=== PATIENT | male | born 1950 | race Caucasian/White ===

== ENCOUNTER → 2020-12-21 10:03 | Outpatient (BNVA) | payer MEDICARE, BC, SELFPAY | PROVIDERS: PCP Internal Medicine; Visit Provider Surgery | DX: Z87.19 Personal history of other diseases of the digestive system (principal) | CPT/HCPCS: 99212 ==

== ENCOUNTER 2021-02-16 10:33 | Emergency (ER) | payer MEDICARE, BC, SELFPAY ==
--- NOTE | ~2021-02-16 | CT_ITS ---
EXAMINATION: CT ABDOMEN AND PELVIS WITH CONTRAST CLINICAL INFORMATION: Left lower quadrant abdominal pain. COMPARISON: None TECHNIQUE: Multidetector volumetric images were obtained from the superior aspect of the liver through the pubic symphysis following administration 85 mL of Omnipaque 350 intravenous contrast. Sagittal and coronal reformatted images were obtained on the technologist's workstation. Oral contrast: No This CT examination was performed using dose optimization techniques as appropriate, variously including the following: *Automated exposure control *Adjustment of mA and/or kV according to patient size (this includes techniques or standardized protocols for targeted exams where dose is matched to indication/reason for exam; i.e. extremities or head) *Use of iterative reconstruction technique DLP: 446 mGy-cm FINDINGS: LUNG BASES: There is bibasilar atelectatic changes. The heart size is normal. LIVER, GALLBLADDER, AND BILIARY TREE: The liver is normal in size, shape, and attenuation. No focal hepatic lesion or biliary ductal dilatation is present. The gallbladder is unremarkable with no evidence of radiopaque gallstones, gallbladder wall thickening, or obvious pericholecystic inflammatory changes. PANCREAS: Unremarkable. SPLEEN: Unremarkable. ADRENAL GLANDS: Unremarkable. KIDNEYS AND URETERS: The kidneys are normal in size, shape, and attenuation. No hydronephrosis, hydroureter, or calculi seen. No perinephric stranding. There is small nonenhancing hypodense areas in the cortex and corticomedullary junction of both kidneys likely small cysts BLADDER: There is mild bladder wall thickening. The anterior bladder wall measuring 6 mm thick. No radiopaque calculi or enhancing renal mass seen. There is mild thickening of base of bladder from mild prostate enlargement. GASTROINTESTINAL TRACT: Scattered colonic diverticulosis with mild mural thickening distal descending colon with pericolic fat stranding but no focal fluid collection or free air. The annular mural thickening is a short segment measuring 3.8 cm and suspicious for underlying lesion. This could also represent acute diverticulitis. No abnormal intravertebral lymph nodes seen.. There is mild mural narrowing as well on axial image 51/3. Small bowel loops unremarkable. Appendix is normal caliber. The stomach is nondistended. ABDOMINAL WALL: No significant hernia is appreciated. LYMPH NODES: Normal. VASCULAR: Mild dystrophic calcification of abdominal aorta without aneurysmal dilatation PELVIC VISCERA: Unremarkable. OSSEOUS STRUCTURES: No lytic or sclerotic process seen. There is moderate spondylosis mid and lower ventral dorsal spine. CT/CT abdomen pelvis w con IMPRESSION: Maul annular mural thickening distal descending colon likely underlying lesion. However given pericolic fat stranding acute diverticulitis cannot be excluded. There is no perforation or collection seen. No proximal bowel obstruction. Recommend follow-up CT abdomen after antibiotic therapy or colonoscopy Rest of the colon diverticulosis. Bilateral renal cysts. No abnormal peritoneal lymph nodes or mass seen. Nonspecific mild urinary bladder wall thickening. Mild prostate enlargement.
[2021-02-16 10:38] VITALS: BP 125/79; PULSE 75; RESP 18; TEMP 36.4; O2SAT 97; BMI 25.4
[2021-02-16 12:57] VITALS: RESP 18
[2021-02-16] MEDS: Morphine Sulfate 4 MG/ML CARTRIDGE IVPUSH ×2 (12:57→16:17)
[2021-02-16] MEDS: ondansetron HCL 4 MG/2 ML VIAL IVPUSH (12:58)
--- NOTE | 2021-02-16 12:59 | ED.ABDPAIN ---
HPI - Abdominal Pain General Chief Complaint: Abdominal Pain Stated Complaint: SEVERE ABD PAIN Time Seen by Provider: 02/16/21 12:06 Source: patient Mode of arrival: ambulatory Limitations: no limitations History of Present Illness HPI narrative: 70-year-old male with a past medical history of coronary artery disease, GERD, hypertension, hyperlipidemia, diverticulitis, on Plavix here with complaints of left lower abdominal pain since yesterday. With nausea. No vomiting, fevers, chills, urinary symptoms. The patient has a history of diverticulitis and feels similar. Related Data Home Medications Medication Instructions Recorded Confirmed amlodipine 10 mg tablet 10 mg PO DAILY 12/21/20 12/21/20 clopidogrel 75 mg tablet 75 mg PO DAILY 12/21/20 12/21/20 famotidine 40 mg tablet 40 mg PO BID 12/21/20 12/21/20 metoprolol succinate 25 mg 25 mg PO DAILY 12/21/20 12/21/20 tablet,extended release 24 hr rosuvastatin 40 mg tablet 40 mg PO DAILY 12/21/20 12/21/20 Previous Rx's Medication Instructions Recorded levofloxacin 750 mg PO DAILY 7 Days #7 tab 02/16/21 metronidazole [Flagyl] 500 mg PO BID #20 tab 02/16/21 oxycodone 5 mg PO Q8H PRN #10 tab 02/16/21 Allergies Allergy/AdvReac Type Severity Reaction Status Date / Time No Known Allergies Allergy Verified 12/21/20 10:39 Review of Systems Review of Systems Yes all other systems are reviewed and are negative Constitutional: Reports no additional constitutional complaints, Denies body ache(s), Denies chills, Denies fever(s), Denies headache(s) and Denies weakness Eyes: Reports no additional eye complaints and Denies change in vision Reports system reviewed and no additional complaints, except as documented, Denies dizziness, Denies headache(s), Denies nasal congestion, Denies nasal discharge and Denies neck pain Cardiovascular: Reports no additional cardiovascular complaints, Denies chest pain, Denies leg edema and Denies dyspnea Respiratory: Reports no additional respiratory complaints, Denies cough and Denies dyspnea Gastrointestinal: Reports no additional gastrointestinal complaints, Reports abdominal pain, Denies diarrhea, Reports nausea and Denies vomiting Genitourinary: Denies urinary incontinence Musculoskeletal: Reports no additional musculoskeletal complaints, Denies back pain, Denies arthralgias, Denies joint swelling, Denies neck pain, Denies numbness and Denies tingling Skin/Breast: Reports system reviewed and no additional complaints, except as docu and Denies rash Reports system reviewed and no additional complaints, except as documented, Denies Abnormal speech present, Denies dizziness, Denies headache(s), Denies numbness, Denies tingling and Denies weakness Physical Exam Vital Signs: Vital Signs: Last Vital Signs Temp 97.9 F 02/16/21 16:34 Pulse 89 02/16/21 16:34 Resp 20 02/16/21 16:34 BP 179/106 H 02/16/21 16:34 Pulse Ox 97 02/16/21 16:34 Body Mass Index 25.4 Const: General: cooperative, healthy appearing, comfortable and no acute distress Orientation/consciousness: patient oriented x3 Limitations: no limitations HENMT: Head: Yes normal to inspection Ears: hearing grossly normal bilaterally General nose exam: Normal external nose present Face and sinus: Yes normal facial exam Mouth: Normal oral and palatal mucosa present Throat: Yes posterior oropharynx normal Eyes: General: appearance normal, both eyes and all related structures Pupils: Equal, round and reactive pupils present Neck: Neck: Yes normal visual inspection Chest: Chest palpation & inspection: normal inspection of the chest Resp: Effort & Inspection: normal respiratory effort Auscultation: clear to auscultation bilaterally Cardio: Rate: regular rate Rhythm: regular rhythm Peripheral pulses: Peripheral pulses 2+ throughout GI: Inspection: Yes normal to inspection Palpation (GI): Soft to palpation and Tenderness to palpation present (GI) (Moderate tenderness with rebound and guarding left lower quadrant) Auscultation: normal bowel sounds Back/Spine/Pelvis: Thoracic/Lumbar Spine: thoracic and lumbar spine normal to inspection Skin: General skin exam: no rashes or lesions noted Neuro: General: patient oriented x3, no focal motor deficits and normal sensation to monofilament Cranial nerves: Yes Equal, round and reactive pupils present Cognition (Neuro): normal cognition Speech: No Abnormal speech present Gait exam (Neuro): Normal gait present Motor exam (neuro): 5/5 motor strength present throughout Extrem: General: Yes normal to inspection Course Course Course Narrative: 70-year-old male here with left lower quadrant abdominal pain since yesterday with associated nausea. History of diverticulitis and feels similar. On exam patient has tenderness with rebound and guarding. Will need labs, UA, CT A/P and analgesia. 1640-CT scan shows diverticulitis. There is an area of moral thickening in the distal descending colon likely underlying lesion. This was discussed with the patient. Was given a copy of the report. He tells me has a colonoscopy with Dr. Hinds at [facility] on February 26 of this year. Has also been seen by Dr. Smith for recurrent diverticulitis with surgical options given. I recommend that he needs to have the colonoscopy outpatient as well as a repeat CT scan. Requesting additional analgesia before discharge. Will monitor for brief time. No vomiting and tolerating p.o.. 1700-pain is well controlled requesting discharge home. Reviewed worrisome signs and symptoms of when to return to the emergency department. Comfortable discharge home. MDM - Abdominal Pain Differential Diagnosis Differential diagnosis: Likely acute appendicitis, bowel perforation and diverticulitis Medical Records Attestation: I reviewed the patient's medical records. Lab Data Attestation: I reviewed the patient's lab results. Result diagrams: 02/16/21 12:55 02/16/21 12:55 Labs: Lab Results 02/16/21 02/16/21 02/16/21 Range/Units 12:55 12:55 12:55 WBC 9.9 (4.8-10.8) X10*3/uL RBC 5.35 (4.60-5.80) X10*6/uL Hgb 15.8 (14.0-18.0) g/dl Hct 45.2 (42-52) % MCV 84.5 (80-98) fL MCH 29.5 (27.0-33.0) pg MCHC 35.0 (31.0-36.0) g/dl RDW 14.9 (11.0-16.0) % Plt Count 254 (160-400) X10*3/uL MPV 8.7 L (9.4-12.4) fL Immature Gran % (Auto) 0.4 (0.0-0.4) % Neut % (Auto) 73.9 H (45-73) % Lymph % (Auto) 11.1 L (20-40) % [place] % (Auto) 12.4 H (2-11) % Eos % (Auto) 1.7 (0-4) % Baso % (Auto) 0.5 (0-2) % Lymph # (Auto) 1.1 L (1.2-4.9) X10*3/uL [place] # (Auto) 1.2 (0.1-1.2) X10*3/uL Eos # (Auto) 0.2 (0.0-0.4) X10*3/uL Baso # (Auto) 0.1 (0.0-0.2) X10*3/uL Abs Immat Gran (auto) 0.04 H (0.00-0.03) X10*3/uL Absolute Neuts (auto) 7.4 (2.0-8.3) X10*3/uL Absolute Nucleated RBC 0.000 (0.0-0.012) X10*3/uL Nucleated RBC % (auto) 0.0 (0.0-0.2) /100WBC Sodium 138 (135-145) mmol/L Potassium 3.6 (3.3-5.1) mmol/L Chloride 99 (96-108) mmol/L Carbon Dioxide 28 (22-29) mmol/L Anion Gap 15 (12-20) BUN 11 (9-16) mg/dL Creatinine 1.03 (0.5-1.4) mg/dL Estim Creat Clear Calc 59.3 Estimated GFR > 60 Random Glucose 84 (60-115) mg/dL Lactic Acid 1.3 (0.5-2.0) mmol/L Calcium 9.4 (8.4-10.2) mg/dL Magnesium 1.7 (1.6-2.6) mg/dL Total Bilirubin 1.4 H (0.0-1.0) mg/dL Direct Bilirubin 0.6 H (0.0-0.5) mg/dL AST 18 (5-37) U/L ALT 14 (0-40) U/L Alkaline Phosphatase 88 (39-117) U/L Total Protein 7.3 (6.5-8.0) g/dL Albumin 4.6 (3.5-5.0) g/dL Lipase 46 (8-78) U/L Urine Color Urine Appearance Urine pH (5.0-8.0) Ur Specific [place] (1.005-1.025) Urine Protein (NEG-TRACE) MG/DL Urine Glucose (UA) (NEG) MG/DL Urine Ketones (NEG) MG/DL Urine Blood (NEG) Urine Nitrite (NEG) Ur Leukocyte Esterase (NEG) 02/16/21 Range/Units 12:55 WBC (4.8-10.8) X10*3/uL RBC (4.60-5.80) X10*6/uL Hgb (14.0-18.0) g/dl Hct (42-52) % MCV (80-98) fL MCH (27.0-33.0) pg MCHC (31.0-36.0) g/dl RDW (11.0-16.0) % Plt Count (160-400) X10*3/uL MPV (9.4-12.4) fL Immature Gran % (Auto) (0.0-0.4) % Neut % (Auto) (45-73) % Lymph % (Auto) (20-40) % [place] % (Auto) (2-11) % Eos % (Auto) (0-4) % Baso % (Auto) (0-2) % Lymph # (Auto) (1.2-4.9) X10*3/uL [place] # (Auto) (0.1-1.2) X10*3/uL Eos # (Auto) (0.0-0.4) X10*3/uL Baso # (Auto) (0.0-0.2) X10*3/uL Abs Immat Gran (auto) (0.00-0.03) X10*3/uL Absolute Neuts (auto) (2.0-8.3) X10*3/uL Absolute Nucleated RBC (0.0-0.012) X10*3/uL Nucleated RBC % (auto) (0.0-0.2) /100WBC Sodium (135-145) mmol/L Potassium (3.3-5.1) mmol/L Chloride (96-108) mmol/L Carbon Dioxide (22-29) mmol/L Anion Gap (12-20) BUN (9-16) mg/dL Creatinine (0.5-1.4) mg/dL Estim Creat Clear Calc Estimated GFR Random Glucose (60-115) mg/dL Lactic Acid (0.5-2.0) mmol/L Calcium (8.4-10.2) mg/dL Magnesium (1.6-2.6) mg/dL Total Bilirubin (0.0-1.0) mg/dL Direct Bilirubin (0.0-0.5) mg/dL AST (5-37) U/L ALT (0-40) U/L Alkaline Phosphatase (39-117) U/L Total Protein (6.5-8.0) g/dL Albumin (3.5-5.0) g/dL Lipase (8-78) U/L Urine Color YELLOW Urine Appearance CLEAR Urine pH 6.0 (5.0-8.0) Ur Specific [place] <= 1.005 (1.005-1.025) Urine Protein NEG (NEG-TRACE) MG/DL Urine Glucose (UA) NEG (NEG) MG/DL Urine Ketones NEG (NEG) MG/DL Urine Blood NEG (NEG) Urine Nitrite NEG (NEG) Ur Leukocyte Esterase NEG (NEG) Imaging Data CT scan - abdomen: Attestation: I personally reviewed and interpreted this imaging study as follows: Radiologist's impression: IMPRESSION: Maul annular mural thickening distal descending colon likely underlying lesion. However given pericolic fat stranding acute diverticulitis cannot be excluded. There is no perforation or collection seen. No proximal bowel obstruction. Recommend follow-up CT abdomen after antibiotic therapy or colonoscopy Rest of the colon diverticulosis. Bilateral renal cysts. No abnormal peritoneal lymph nodes or mass seen. Nonspecific mild urinary bladder wall thickening. Mild prostate enlargement. Discharge Plan Discharge Clinical Impression: Diverticulitis Patient Disposition: Home, Self-Care Instructions: Diverticulitis (ED), Diverticulitis Diet (ED) Additional Instructions: You are given a copy of her report Return for severe pain, fever greater than 100.4, two or more vomiting episodes Follow-up with your surgeon, GI doctor and PCP Prescriptions: New metronidazole [Flagyl] 500 mg tablet 500 mg PO BID Qty: 20 RF: 0 levofloxacin 750 mg tablet 750 mg PO DAILY 7 Days Qty: 7 RF: 0 oxycodone 5 mg tablet 5 mg PO Q8H PRN (Reason: pain) Qty: 10 RF: 0 No Action metoprolol succinate 25 mg tablet extended release 24 hr 25 mg PO DAILY RF: 0 clopidogrel [Plavix] 75 mg tablet 75 mg PO DAILY RF: 0 amlodipine 10 mg tablet 10 mg PO DAILY RF: 0 rosuvastatin [Crestor] 40 mg tablet 40 mg PO DAILY RF: 0 famotidine 40 mg tablet 40 mg PO BID RF: 0 Interventions: ED Discharge Assessment Last Done: 02/16/21 17:23 Discharge Date/Time: 02/16/21 17:23 [facility] Past Medical History Attestation statement: The following information was validated with the patient. Source: old records reviewed and nursing notes reviewed Medical History Coronary artery disease GERD (gastroesophageal reflux disease) History of diverticulitis HTN (hypertension) Hypercholesterolemia Surgical History History of ankle surgery History of tonsillectomy and adenoidectomy Hx of colonoscopy Hx of hand surgery Hx of heart artery stent Family History Family History Mother Pacemaker Father No problems noted. Sister No problems noted. Son No problems noted. Daughter No problems noted. Social History Social History Alcohol intake: former Advance Directives: Yes Advance Directives Information Provided: Yes Advance Directives on File: No
[2021-02-16 13:01] LABS: Basophils Absolute Auto 0.1 X10*3/uL (0.0-0.2); Basophils Percent Auto 0.5 % (0-2); Eosinophils Absolute Auto 0.2 X10*3/uL (0.0-0.4); Eosinophils Percent Auto 1.7 % (0-4); Hematocrit 45.2 % (42-52); Hemoglobin 15.8 g/dl (14.0-18.0); Imm Gran Abs Auto 0.04 X10*3/uL (0.00-0.03); Imm Gran Pct Auto 0.4 % (0.0-0.4); Lymphocytes Absolute Auto 1.1 X10*3/uL (1.2-4.9); Lymphocytes Percent Auto 11.1 % (20-40); MANUAL DIFF FLAG NO; Mean Corpuscular Hemoglobin 29.5 pg (27.0-33.0); Mean Corpuscular Volume 84.5 fL (80-98); Mean Platelet Volume 8.7 fL (9.4-12.4); Monocytes Absolute Auto 1.2 X10*3/uL (0.1-1.2); Monocytes Percent Auto 12.4 % (2-11); Neutrophils Absolute Auto 7.4 X10*3/uL (2.0-8.3); Neutrophils Percent Auto 73.9 % (45-73); Platelet Count 254 X10*3/uL (160-400); Red Blood Count 5.35 X10*6/uL (4.60-5.80); Red Cell Distribution Width 14.9 % (11.0-16.0); White Blood Count 9.9 X10*3/uL (4.8-10.8)
[2021-02-16 13:02] LABS: Glucose Urine UA NEG (NEG); Leukocyte Esterase Urine NEG (NEG); Nitrite Urine NEG (NEG); Specific Gravity - Urine <= 1.005 (1.005-1.025); Urine Blood NEG (NEG); Urine Ketones NEG (NEG); Urine Protein NEG (NEG-TRACE)
[2021-02-16 13:03] LABS: Appearance Urine CLEAR; Color Urine YELLOW
[2021-02-16 13:18] LABS: Lactic Acid 1.3 mmol/L (0.5-2.0)
[2021-02-16 13:23] LABS: Alanine Aminotransferase 14 U/L (0-40); Albumin Level 4.6 g/dL (3.5-5.0); Alkaline Phosphatase 88 U/L (39-117); Anion Gap 15 (12-20); Aspartate Amino Transferase 18 U/L (5-37); Bilirubin Direct 0.6 mg/dL (0.0-0.5); Bilirubin Total 1.4 mg/dL (0.0-1.0); Blood Urea Nitrogen 11 mg/dL (9-16); Calcium 9.4 mg/dL (8.4-10.2); Carbon Dioxide 28 mmol/L (22-29); Chloride 99 mmol/L (96-108); Creatinine Clr Calc Pharmacy 59.3; Estimated Glomerular Filt Rate > 60; Glucose Random 84 mg/dL (60-115); Magnesium 1.7 mg/dL (1.6-2.6); Potassium 3.6 mmol/L (3.3-5.1); Sodium 138 mmol/L (135-145); Total Protein 7.3 g/dL (6.5-8.0)
[2021-02-16 13:29] LABS: Lipase 46 U/L (8-78)
[2021-02-16 14:16] VITALS: BP 126/73; PULSE 64; RESP 15; TEMP 36.8; O2SAT 96
[2021-02-16] MEDS: iohexoL 350 MG/ML 100 ML INFUS..BTL IV (14:53)
[2021-02-16 16:34] VITALS: BP 179/106; PULSE 89; RESP 20; TEMP 36.6; O2SAT 97
== END 2021-02-16 17:23 | disposition home or self-care (01) ==
PROVIDERS: Nurse Practitioner Family; Emergency Provider Emergency Medicine Emergency Medical Services; PCP Internal Medicine
DX: K57.92 Diverticulitis of intestine, part unspecified, without perforation or abscess without bleeding (principal); I10 Essential (primary) hypertension; I25.10 Atherosclerotic heart disease of native coronary artery without angina pectoris; Z79.02 Long term (current) use of antithrombotics/antiplatelets
CPT/HCPCS: 36415; 74177; 80048; 80076; 81003; 83605; 83690; 83735; 85025; 87040; 96374; 96375; 96376; 99283; 99284; J2270; J2405; Q9967

== ENCOUNTER → 2021-04-22 10:46 | Outpatient (BNVA) | payer MEDICARE, BC, SELFPAY | PROVIDERS: PCP Internal Medicine; Visit Provider Surgery | DX: K57.90 Diverticulosis of intestine, part unspecified, without perforation or abscess without bleeding (principal) | CPT/HCPCS: 99212 ==

== ENCOUNTER 2021-07-09 10:00 | Emergency (ER) | payer MEDICARE, BC, SELFPAY ==
--- NOTE | ~2021-07-09 | CT_ITS ---
EXAMINATION: CT ABDOMEN AND PELVIS WITH CONTRAST CLINICAL INFORMATION: Left lower quadrant pain. COMPARISON: CT abdomen/pelvis dated from 02/16/2021. TECHNIQUE: Multidetector volumetric images were obtained from the superior aspect of the liver through the pubic symphysis following administration 85 mL of Omnipaque 350 intravenous contrast. Sagittal and coronal reformatted images were obtained on the technologist's workstation. Oral contrast: No This CT examination was performed using dose optimization techniques as appropriate, variously including the following: *Automated exposure control *Adjustment of mA and/or kV according to patient size (this includes techniques or standardized protocols for targeted exams where dose is matched to indication/reason for exam; i.e. extremities or head) *Use of iterative reconstruction technique DLP: 488 mGy-cm FINDINGS: LUNG BASES: There are at least 2 new subcentimeter nodules in the right middle lobe best visualized on images 50 and 51 of series 4. There are dependent atelectasis in the lung bases without focal consolidation or pleural effusion. Mild cardiomegaly with coronary calcifications. No pericardial effusion. LIVER, GALLBLADDER, AND BILIARY TREE: The liver is normal in size, shape, and attenuation. No focal hepatic lesion or biliary ductal dilatation is present. The gallbladder is unremarkable with no evidence of radiopaque gallstones, gallbladder wall thickening, or obvious pericholecystic inflammatory changes. PANCREAS: The pancreatic duct is mildly prominent at the level of the head measuring up to 5 mm, which is unchanged. No focal abnormalities are identified within the parenchyma. There is no significant peripancreatic fat stranding. SPLEEN: Unremarkable. ADRENAL GLANDS: Unremarkable. KIDNEYS AND URETERS: The kidneys are normal in size, shape, and attenuation. There is redemonstration of bilateral renal cysts and a few other too small to characterize hypodensities that are also statistically likely to represent simple cysts. No hydronephrosis, hydroureter, or calculi seen. No perinephric stranding. BLADDER: There is diffuse urinary bladder wall thickening which is also slightly trabeculated. There is no significant perivesical fat stranding or focal abnormalities. GASTROINTESTINAL TRACT: There is improved but persistent wall thickening and inflammatory changes involving the descending colon and sigmoid around several diverticuli. A previously described annular mural thickening in the descending colon is less apparent in this study. No new segments of inflammatory bowel changes. There is no bowel obstruction. There is a small hiatal hernia. The stomach and the small bowel are nondilated. The appendix is unremarkable. ABDOMINAL WALL: Small fat-containing right inguinal hernia. LYMPH NODES: No lymphadenopathy by size criteria. VASCULAR: Scattered atherosclerotic disease of the abdominal aorta which is of normal caliber. PELVIC VISCERA: Prostatomegaly. OSSEOUS STRUCTURES: No acute or aggressive osseous abnormalities. Multilevel thoracolumbar spondylosis. CT/CT abdomen pelvis w con IMPRESSION: There are decreased but persistent wall thickening and inflammatory changes within the descending colon and sigmoid colon, suggesting improved flare of acute diverticulitis. A previously described possible annular lesion in the descending colon is less apparent in this study. Recommend evaluation with colonoscopy after resolution of the diverticulitis to ensure the absence of underlying lesions. Enlarged prostate with findings suggestive of chronic outlet obstruction manifested by thickening and trabeculation of the wall of the urinary bladder. Indeterminate prominence of the pancreatic duct without change. If clinically indicated, consider further evaluation with an MR/MRCP. There appears to be a few new nodularities in the right middle lobe some of which appear to be within the lumen of bronchi and others of which are subpleural. This likely represents areas of mucus impaction and are likely inflammatory or infectious in etiology. Correlate clinically and if indicated consider a follow-up imaging to ensure resolution.
[2021-07-09 10:05] VITALS: BP 117/82; PULSE 66; RESP 16; TEMP 36.1; O2SAT 98; BMI 26.6
--- NOTE | 2021-07-09 10:22 | ED_ITS ---
HPI - Abdominal Pain General Chief Complaint: Abdominal Pain Stated Complaint: abd pain Time Seen by Provider: 07/09/21 10:17 Source: patient and old records reviewed Mode of arrival: ambulatory Limitations: no limitations History of Present Illness MD elicited complaint: abdominal pain Pertinent past history: diverticulitis Onset (ago): day(s) (last night) Pain Consistency: constant Location: LLQ Severity: moderate Quality: cramping and dull Radiation: none Migration to: no migration Exacerbating factors: movement Relieving factors: nothing Context: history of similar episodes Associated symptoms: nausea and vomiting Related Data Home Medications Medication Instructions Recorded Confirmed amlodipine 10 mg tablet 10 mg PO DAILY 12/21/20 04/22/21 clopidogrel 75 mg tablet (Plavix) 75 mg PO DAILY 12/21/20 04/22/21 famotidine 40 mg tablet 40 mg PO BID 12/21/20 04/22/21 metoprolol succinate 25 mg 25 mg PO DAILY 12/21/20 04/22/21 tablet,extended release 24 hr rosuvastatin 40 mg tablet (Crestor) 40 mg PO DAILY 12/21/20 04/22/21 Previous Rx's Medication Instructions Recorded amoxicillin 875 mg-potassium 1 tab PO BID #14 tab 07/09/21 clavulanate 125 mg tablet (Augmentin) morphine 15 mg immediate release 15 mg PO Q6H PRN 3 Days #12 tab 07/09/21 tablet ondansetron 4 mg disintegrating 4 mg PO Q8H PRN #20 tab 07/09/21 tablet Allergies Allergy/AdvReac Type Severity Reaction Status Date / Time No Known Allergies Allergy Verified 04/22/21 10:47 Review of Systems Review of Systems Constitutional : No Weight loss, No Fever, No Chills ENT/Mouth : No sore throat, No Rhinorrhea Eyes: No Swelling, No Redness Cardiovascular : No Chest Pain, No SOB, NoEdema Respiratory : No Cough, No Sputum, No Wheezing Gastrointestinal : Positive Nausea, Positive Vomiting, no Diarrhea, positive abdominal Pain, No Hematochezia, No Melena Genitourinary : No Dysuria, No Urinary Frequency, No Hematuria, No Urgency Musculoskeletal : No joint pain, No Myalgias, No Joint Swelling Skin : No Skin Lesions, No rash Neuro : No Weakness, No Numbness, No Dizziness, No Headache Psych : No Anxiety/Panic, No Depression Heme/Lymph: No Bruising, No Lymphadenopathy Endocrine : No Polyuria, No Polydipsia All other systems reviewed and are negative. Physical Exam Vital Signs: Vital Signs: Last Vital Signs Temp 98 F 07/09/21 11:35 Pulse 78 07/09/21 11:35 Resp 18 07/09/21 11:35 BP 130/69 07/09/21 11:35 Pulse Ox 98 07/09/21 11:35 Body Mass Index 26.6 Appearance: Alert. Oriented X3. No acute distress. Eyes: Pupils equal, round and reactive to light. ENT: Pharynx normal. Neck: Normal inspection. Neck supple. CVS: Normal heart rate and rhythm. Pulses normal. Respiratory: No respiratory distress. Breath sounds normal. Abdomen: Soft and moderate ttp in LLQ no rebound or guarding Skin: Skin warm and dry. Normal skin color. Normal skin turgor. Extremities: No lower extremity edema. No calf ttp Neuro: Oriented X 3. No motor deficit. No sensory deficit. Course Course Course Narrative: no vomiting, no WBC count afebrile can tolerate PO stable for outpatient management discussed findings with patient MDM - Abdominal Pain MDM Narrative Medical decision making narrative: 71 yo male with hx of HTN, CAD, diverticulitis c/o LLQ pain since last night with n/v no GIB symptoms at this time labs, IVF, IV morphine for pain, CT scan for diverticulitis ordered, dispo per results and findings. Differential Diagnosis Differential diagnosis: Likely calculus of kidney, constipation, diverticulitis, renal colic and small bowel obstruction; Unlikely aortic dissection, acute appendicitis or mesenteric ischemia Lab Data Result diagrams: 07/09/21 10:48 07/09/21 10:48 Labs: Lab Results 07/09/21 07/09/21 07/09/21 Range/Units 10:48 10:48 10:48 WBC 8.6 (4.8-10.8) X10*3/uL RBC 5.05 (4.60-5.80) X10*6/uL Hgb 15.5 (14.0-18.0) g/dl Hct 44.0 (42.0-52.0) % MCV 87.1 (80.0-98.0) fL MCH 30.7 (27.0-33.0) pg MCHC 35.2 (31.0-36.0) g/dl RDW 13.4 (11.0-16.0) % Plt Count 294 (160-400) X10*3/uL MPV 9.1 L (9.4-12.4) fL Immature Gran % (Auto) 0.4 (0.0-0.4) % Neut % (Auto) 60.3 (45-73) % Lymph % (Auto) 16.6 L (20-40) % [place] % (Auto) 15.3 H (2-11) % Eos % (Auto) 6.5 H (0-4) % Baso % (Auto) 0.9 (0-2) % Lymph # (Auto) 1.4 (1.2-4.9) X10*3/uL [place] # (Auto) 1.3 H (0.1-1.2) X10*3/uL Eos # (Auto) 0.6 H (0.0-0.4) X10*3/uL Baso # (Auto) 0.1 (0.0-0.2) X10*3/uL Abs Immat Gran (auto) 0.03 (0.00-0.03) X10*3/uL Absolute Neuts (auto) 5.15 (2.0-8.3) x10*3/uL Absolute Nucleated RBC 0.000 (0.0-0.012) X10*3/uL Nucleated RBC % (auto) 0.0 (0.0-0.2) /100WBC Sodium 140 (135-145) mmol/L Potassium 3.7 (3.3-5.1) mmol/L Chloride 105 (96-108) mmol/L Carbon Dioxide 27 (22-29) mmol/L Anion Gap 12 (12-20) BUN 13 (9-16) mg/dL Creatinine 1.02 (0.5-1.4) mg/dL Estim Creat Clear Calc 56.9 Estimated GFR > 60 Random Glucose 97 (60-115) mg/dL Lactic Acid 1.3 (0.5-2.0) mmol/L Calcium 9.4 (8.4-10.2) mg/dL Magnesium 1.9 (1.6-2.6) mg/dL Total Bilirubin 0.8 (0.0-1.0) mg/dL Direct Bilirubin 0.3 (0.0-0.5) mg/dL AST 20 (5-37) U/L ALT 19 (0-40) U/L Alkaline Phosphatase 76 (39-117) U/L Total Protein 7.2 (6.5-8.0) g/dL Albumin 4.5 (3.5-5.0) g/dL Lipase 53 (8-78) U/L Urine Color Urine Appearance Urine pH (5.0-8.0) Ur Specific [place] (1.005-1.025) Urine Protein (NEG-TRACE) MG/DL Urine Glucose (UA) (NEG) MG/DL Urine Ketones (NEG) MG/DL Urine Blood (NEG) Urine Nitrite (NEG) Ur Leukocyte Esterase (NEG) 07/09/21 Range/Units 10:48 WBC (4.8-10.8) X10*3/uL RBC (4.60-5.80) X10*6/uL Hgb (14.0-18.0) g/dl Hct (42.0-52.0) % MCV (80.0-98.0) fL MCH (27.0-33.0) pg MCHC (31.0-36.0) g/dl RDW (11.0-16.0) % Plt Count (160-400) X10*3/uL MPV (9.4-12.4) fL Immature Gran % (Auto) (0.0-0.4) % Neut % (Auto) (45-73) % Lymph % (Auto) (20-40) % [place] % (Auto) (2-11) % Eos % (Auto) (0-4) % Baso % (Auto) (0-2) % Lymph # (Auto) (1.2-4.9) X10*3/uL [place] # (Auto) (0.1-1.2) X10*3/uL Eos # (Auto) (0.0-0.4) X10*3/uL Baso # (Auto) (0.0-0.2) X10*3/uL Abs Immat Gran (auto) (0.00-0.03) X10*3/uL Absolute Neuts (auto) (2.0-8.3) x10*3/uL Absolute Nucleated RBC (0.0-0.012) X10*3/uL Nucleated RBC % (auto) (0.0-0.2) /100WBC Sodium (135-145) mmol/L Potassium (3.3-5.1) mmol/L Chloride (96-108) mmol/L Carbon Dioxide (22-29) mmol/L Anion Gap (12-20) BUN (9-16) mg/dL Creatinine (0.5-1.4) mg/dL Estim Creat Clear Calc Estimated GFR Random Glucose (60-115) mg/dL Lactic Acid (0.5-2.0) mmol/L Calcium (8.4-10.2) mg/dL Magnesium (1.6-2.6) mg/dL Total Bilirubin (0.0-1.0) mg/dL Direct Bilirubin (0.0-0.5) mg/dL AST (5-37) U/L ALT (0-40) U/L Alkaline Phosphatase (39-117) U/L Total Protein (6.5-8.0) g/dL Albumin (3.5-5.0) g/dL Lipase (8-78) U/L Urine Color YELLOW Urine Appearance CLEAR Urine pH 6.0 (5.0-8.0) Ur Specific [place] 1.020 (1.005-1.025) Urine Protein TRACE (NEG-TRACE) MG/DL Urine Glucose (UA) NEG (NEG) MG/DL Urine Ketones NEG (NEG) MG/DL Urine Blood NEG (NEG) Urine Nitrite NEG (NEG) Ur Leukocyte Esterase NEG (NEG) Discharge Plan Discharge Clinical Impression: Diverticulitis Patient Disposition: Home, Self-Care Instructions: Diverticulitis (ED) Additional Instructions: return to ED for any worsening symptoms or concerns please follow up with your primary care and surgeon There are decreased but persistent wall thickening and inflammatory changes within the descending colon and sigmoid colon, suggesting improved flare of acute diverticulitis. A previously described possible annular lesion in the descending colon is less apparent in this study. Recommend evaluation with colonoscopy after resolution of the diverticulitis to ensure the absence of underlying lesions. ? Enlarged prostate with findings suggestive of chronic outlet obstruction manifested by thickening and trabeculation of the wall of the urinary bladder. ? Indeterminate prominence of the pancreatic duct without change. If clinically indicated, consider further evaluation with an MR/MRCP. Prescriptions: New amoxicillin-pot clavulanate [Augmentin] 875-125 mg tablet 1 tab PO BID Qty: 14 RF: 0 morphine 15 mg tablet 15 mg PO Q6H PRN (Reason: pain) 3 Days Qty: 12 RF: 0 ondansetron 4 mg tablet,disintegrating 4 mg PO Q8H PRN (Reason: nausea and vomiting) Qty: 20 RF: 0 No Action metoprolol succinate 25 mg tablet extended release 24 hr 25 mg PO DAILY RF: 0 clopidogrel [Plavix] 75 mg tablet 75 mg PO DAILY RF: 0 amlodipine 10 mg tablet 10 mg PO DAILY RF: 0 rosuvastatin [Crestor] 40 mg tablet 40 mg PO DAILY RF: 0 famotidine 40 mg tablet 40 mg PO BID RF: 0 Referrals: Jaspal Montelongo MD [Physician] - 1 week [facility] Past Medical History Attestation statement: The following information was validated with the patient. Medical History Coronary artery disease GERD (gastroesophageal reflux disease) History of diverticulitis HTN (hypertension) Hypercholesterolemia Surgical History History of ankle surgery History of tonsillectomy and adenoidectomy Hx of colonoscopy Hx of hand surgery Hx of heart artery stent Family History Family History Mother Pacemaker Father No problems noted. Sister No problems noted. Son No problems noted. Daughter No problems noted. Social History Social History Alcohol intake: former Patient Tobacco Use Status: Never used Tobacco Advance Directives: No
[2021-07-09] MEDS: ondansetron HCL 4 MG/2 ML VIAL IVPUSH (10:51)
[2021-07-09] MEDS: Morphine Sulfate 4 MG/ML CARTRIDGE IVPUSH (10:52)
[2021-07-09] MEDS: 0.9 % Sodium Chloride 500 ML IV (10:53)
[2021-07-09 11:03] LABS: MANUAL DIFF FLAG NO
[2021-07-09 11:05] LABS: Basophils Absolute Auto 0.1 X10*3/uL (0.0-0.2); Basophils Percent Auto 0.9 % (0-2); Eosinophils Absolute Auto 0.6 X10*3/uL (0.0-0.4); Eosinophils Percent Auto 6.5 % (0-4); Hemoglobin 15.5 g/dl (14.0-18.0); Imm Gran Abs Auto 0.03 X10*3/uL (0.00-0.03); Imm Gran Pct Auto 0.4 % (0.0-0.4); Lymphocytes Absolute Auto 1.4 X10*3/uL (1.2-4.9); Lymphocytes Percent Auto 16.6 % (20-40); Mean Corpuscular HGB Conc 35.2 g/dl (31.0-36.0); Mean Corpuscular Hemoglobin 30.7 pg (27.0-33.0); Mean Corpuscular Volume 87.1 fL (80.0-98.0); Mean Platelet Volume 9.1 fL (9.4-12.4); Monocytes Absolute Auto 1.3 X10*3/uL (0.1-1.2); Monocytes Percent Auto 15.3 % (2-11); Neutrophils Absolute Auto 5.15 x10*3/uL (2.0-8.3); Neutrophils Percent Auto 60.3 % (45-73); Platelet Count 294 X10*3/uL (160-400); Red Blood Count 5.05 X10*6/uL (4.60-5.80); Red Cell Distribution Width 13.4 % (11.0-16.0); White Blood Count 8.6 X10*3/uL (4.8-10.8)
[2021-07-09 11:08] LABS: Appearance Urine CLEAR; Color Urine YELLOW; Glucose Urine UA NEG (NEG); Leukocyte Esterase Urine NEG (NEG); Nitrite Urine NEG (NEG); Urine Blood NEG (NEG); Urine Ketones NEG (NEG); Urine Protein TRACE MG/DL (NEG-TRACE)
[2021-07-09 11:21] LABS: Lactic Acid 1.3 mmol/L (0.5-2.0)
[2021-07-09 11:27] LABS: Alanine Aminotransferase 19 U/L (0-40); Albumin Level 4.5 g/dL (3.5-5.0); Alkaline Phosphatase 76 U/L (39-117); Anion Gap 12 (12-20); Aspartate Amino Transferase 20 U/L (5-37); Bilirubin Direct 0.3 mg/dL (0.0-0.5); Bilirubin Total 0.8 mg/dL (0.0-1.0); Blood Urea Nitrogen 13 mg/dL (9-16); Calcium 9.4 mg/dL (8.4-10.2); Carbon Dioxide 27 mmol/L (22-29); Chloride 105 mmol/L (96-108); Creatinine Clr Calc Pharmacy 56.9; Estimated Glomerular Filt Rate > 60; Glucose Random 97 mg/dL (60-115); Lipase 53 U/L (8-78); Magnesium 1.9 mg/dL (1.6-2.6); Potassium 3.7 mmol/L (3.3-5.1); Sodium 140 mmol/L (135-145); Total Protein 7.2 g/dL (6.5-8.0)
[2021-07-09] MEDS: Piperacillin Sodium/Tazobactam 3.375 GM in 0.9 % Sodium Chloride 50 ML IV (11:33)
[2021-07-09 11:35] VITALS: BP 130/69; PULSE 78; RESP 18; TEMP 36.6; O2SAT 98
[2021-07-09] MEDS: iohexoL 350 MG/ML 100 ML INFUS..BTL IV (12:22)
== END 2021-07-09 13:21 | disposition home or self-care (01) ==
PROVIDERS: Emergency Provider Emergency Medicine; PCP Internal Medicine
DX: K57.32 Diverticulitis of large intestine without perforation or abscess without bleeding (principal); R10.32 Left lower quadrant pain; I25.10 Atherosclerotic heart disease of native coronary artery without angina pectoris; Z79.899 Other long term (current) drug therapy
CPT/HCPCS: 36415; 74177; 80048; 80076; 81003; 83605; 83690; 83735; 85025; 87040; 96361; 96365; 96375; 99283; 99284; J2270; J2405; J2543; Q9967